=== PATIENT | male | born 1960 | race Caucasian/White ===

== ENCOUNTER 2022-11-27 08:06 | Day surgery (SDC) | payer OTHER ==
[~2022-11-27] VITALS: Ht 172.7 cm; Wt 96.2 kg
[2022-11-27] MEDS ORDERED: fentaNYL citrate 0.05 MG/ML VIAL ONE (09:33)
[2022-11-27] MEDS ORDERED: MIDAZOLAM 2 MG/2 ML VIAL ONE (09:34)
[2022-11-27] MEDS: MIDAZOLAM 2 MG/2 ML VIAL IVP ONE (09:53)
== END 2022-11-27 11:05 | disposition home or self-care (01) ==
LOC: MOR 08:06 → MMU 08:07 → EDSEX 09:00 → MOR 11:05
PROVIDERS: ATTEND Internal Medicine Gastroenterology
DX: K70.9 Alcoholic liver disease, unspecified (principal); K44.9 Diaphragmatic hernia without obstruction or gangrene; K31.7 Polyp of stomach and duodenum; Z79.899 Other long term (current) drug therapy
CPT/HCPCS: 43235; J2250; J3010